=== PATIENT | female | born 1995 | race Caucasian/White ===

== ENCOUNTER 2020-05-18 18:44 | Emergency (ER) | payer OTHER ==
[~2020-05-18] VITALS: Ht 152.4 cm; Wt 81.6 kg
[2020-05-18 19:02] VITALS: BP 164/92
[2020-05-18 19:34] LABS: BASOPHIL % 0.3 % (0.0-0.2); EOSINOPHIL # 0.1 10^3/uL (0.0-0.2); EOSINOPHIL % 0.7 % (0.0-5.0); LYMPHOCYTES # 1.62 10^3/uL1 (1.0-4.8); LYMPHOCYTES % 18.8 % (24.0-44.0); MEAN CORP HGB 27.1 pg (26-34); MONOCYTES # 0.4 10^3/uL (0.3-0.8); MONOCYTES % 5.1 % (5.0-12.0); NEUTROPHIL # 6.4 10^3/uL (1.8-7.7); NEUTROPHILS % 74.4 % (41.0-85.0); RED CELL DISTRIBUTION WIDTH 15.2 % (11.5-14.5)
[2020-05-18 19:39] LABS: BILIRUBIN,URINE NEGATIVE (NEGATIVE); UA COLOR RED
--- NOTE | 2020-05-18 20:50 | NUR ---
US DARRELL CALLED FOR US AT THIS TIME.
--- NOTE | 2020-05-18 21:48 | NUR ---
US PT STILL IN US AT THIS TIME.
--- NOTE | 2020-05-18 22:28 | DIREP ---
PROCEDURE:US OB 1ST TRI - TV COMPARISON:None. INDICATIONS:first trimester bleeding and cramps. TECHNIQUE:Transabdominal and endovaginal pelvic ultrasound images were obtained. Endovaginal images were obtained to optimally evaluate the and maternal adnexal structures. FINDINGS: GESTATIONAL SAC:No gestational sacs identified in the uterus. UTERUS:Endometrium is thickened but no intrauterine gestation is identified. The small and fluid in the endocervical canal. OVARIES:Right ovary measures 4.3 x 2.2 x 2.4 on the left ovary measures 4.9 x 2.3 x 2.3. In the right adnexa there is a mildly echogenic structure with mild peripheral acoustical shadowing measuring 4 x 2.4 x 2.9 cm. It is not clear if this represents a loop of bowel, adnexal mass, or portion of the right ovary. No adnexal gestational sac is identified. CUL-DE-SAC:Small amount of free fluid in the cul de sac. US SHUN:Not available OTHER:Survey of the placental anatomic structure and amniotic fluid could not be performed because of gestational age (<14 weeks). CONCLUSION: 1. No intrauterine gestation is identified at this time however the endometrium is thickened and there is small amount of fluid in the endocervical canal. Findings could signify gestation of unknown location or spontaneous . Recommend follow-up beta HCG levels. 2. Indeterminate right adnexal soft tissue structure could represent a loop of bowel, adnexal mass, or portion of the right ovary. Dictated by: Bear Mei MD on 05/18/2020 at 10:12 PM
--- NOTE | 2020-05-19 00:13 | ER.PDOC ---
General Chief Complaint: Vaginal Bleed Stated Complaint: POSSIBLE MISCARRIAGE Time seen by MD: 19:20 Source: patient, family Exam Limitations: no limitations History of Present Illness Initial Comments This 24-year-old female comes to the emergency department accompanied by her best friend. She is visiting from [place]. She is known to be estim ated at 6 weeks and was having vaginal bleeding at home prior to coming here and was seen in the emergency department there having a negative ultrasound for intrauterine implantation and was deemed to be very early first trimester. Her quantitative hCG at the time was 1700 as she recalls. She stopped bleeding for a few days but began bleeding again yesterday lightly and today passed more clots and had more cramping but did not feel faint. She has had no fever or chills and no dysuria. She has 3 children, ages 4, 2, and 1. She has never had a miscarriage or therapeutic previously. She is normally healthy with no history of gestational diabetes or preeclampsia. She denies any severe abdominal pain or any flank pain or dysuria. She has had no recent infections and denies any coronavirus contacts or suggestion of infection personally. Allergies: Coded Allergies: atomoxetine (Verified Allergy, Unknown, 05/18/20) Past Medical History Medical History: asthma Surgical History: cholecystectomy, Family History Significant Family History: no pertinent family hx Social History Smoking: non-smoker Alcohol Use: none Drug Use: none Review of Systems Constitutional: denies chills, denies diaphoresis, denies fever, denies weakness EENTM: no symptoms reported Respiratory: denies cough, denies shortness of breath, denies wheezing; other (History of asthma) Cardiovascular: no symptoms reported Gastrointestinal: no symptoms reported Genitourinary: see HPI Musculoskeletal: no symptoms reported Skin: no symptoms reported Psychiatric/Neurological: no symptoms reported Endocrine: no symptoms reported Hematologic/Lymphatic: no symptoms reported Physical Exam General Appearance: No Apparent Distress, WD/WN EENT: eyes nml inspection, nml ENT inspection, pharynx nml Neck: nml inspection, non-tender Cardiovascular/Respiratory: Regular Rate, Rhythm, No M/R/G, Normal Peripheral Pulses, No JVD, Normal Breath Sounds, No Respiratory Distress Abdomen: Normal Bowel Sounds, Non Tender, Soft, No Organomegaly, No Pulsatile Mass Rectal: Normal Exam Back: nml inspection Pelvic: External Exam Normal, No Cerv. Motion Tender, No Masses, Active Bleeding, Other Extremities: Normal Range of Motion, Non-Tender, Normal Inspection, No Pedal Edema, No Calf Tenderness, Normal Capillary Refill Neurologic/Psychiatric: patternmaker helper II-XII NML as Tested, No Motor/Sensory Deficits, Alert, Normal Mood/Affect, Oriented x 3 Skin: Normal Color, Warm/Dry Comments Pelvic exam was performed showing a closed cervical os with scant amount of blood in the vaginal cavity with no clot and no evidence of vaginal wall trauma. Patient has no palpable adnexal fullness or mass or tenderness on either side. She has no evidence of cervicitis and no vaginal lesions or lesions around the introitus. She has no regional adenopathy. There are no products of conception in the vaginal cavity and she has a negative [place] sign. Results/Orders Results/Orders Orders - KALANI BELTRÁN MD Cbc With Auto Diff (05/18/20 19:19) Urinalysis (05/18/20 19:19) Hcg, Quantitative (05/18/20 19:19) Urine Culture (05/18/20 18:51) Us Preg Before 14 Wks (05/18/20 20:08) Us Tv-Ob (05/18/20 20:11) Vital Signs Date Time Temp Pulse Resp B/P (MAP) Pulse Ox O2 Delivery O2 Flow Rate FiO2 05/18/20 19:02 98.9 129 18 164/92 (116) 97 Room Air 05/18/20 19:02 98.9 129 18 97 05/18/20 19:02 98.9 129 18 Laboratory Tests Test 05/18/20 18:51 05/18/20 19:26 Urine Collection Type CCMS Urine Color RED Urine Appearance CLOUDY Urine Bilirubin NEGATIVE (NEGATIVE) Urine Ketones NEGATIVE (NEGATIVE) Urine Specific [place] 1.025 (1.005-1.030) Urine pH 7.0 (4.5-8.0) Urine Protein TRACE (NEGATIVE) H Urine Urobilinogen 1.0 E.U./dL (0.2) Urine Nitrate NEGATIVE (NEGATIVE) Urine Leukocyte Esterase NEGATIVE (NEGATIVE) Urine Glucose (Auto)(UA) NEGATIVE (NEGATIVE) Urine Blood MODERATE (NEGATIVE) H Urine RBC TNTC RBC/HPF (NONE SEEN) H Urine WBC 0-2 WBC/HPF (0-2) Urine Squamous Epithelial Cells FEW #/HPF (FEW) Urine Bacteria FEW (NONE SEEN) H White Blood Count 8.6 10^3/uL (4.5-11.0) Red Blood Count 4.13 10^6/uL (4.00-5.20) Hemoglobin 11.2 g/dL (12.0-15.0) L Hematocrit 33.6 % (36.0-46.0) L Mean Corpuscular Volume 81.4 fL (78-100) Mean Corpuscular Hemoglobin 27.1 pg (26-34) Mean Corpuscular Hemoglobin Concent 33.3 g/dL (33-36.5) Red Cell Distribution Width 15.2 % (11.5-14.5) H Platelet Count 242 10^3/uL (150-400) Mean Platelet Volume 11.4 fL (7.8-11.0) H Neutrophils (%) (Auto) 74.4 % (41.0-85.0) Lymphocytes (%) (Auto) 18.8 % (24.0-44.0) L Monocytes (%) (Auto) 5.1 % (5.0-12.0) Neutrophils # (Auto) 6.4 10^3/uL (1.8-7.7) Lymphocytes # (Auto) 1.62 10^3/uL1 (1.0-4.8) Monocytes # (Auto) 0.4 10^3/uL (0.3-0.8) Absolute Immature Granulocyte (auto 0.06 10^3 u/L (0-2) Absolute Eosinophils (auto) 0.1 10^3/uL (0.0-0.2) Immature Granulocytes % 0.70 % (0.00-0.50) H Eosinophils % 0.7 % (0.0-5.0) Basophils % 0.3 % (0.0-0.2) H Basophils # 0.0 10^3/uL (0.0-0.1) Human Chorionic Gonadotropin, Quant 2329 mIU/mL Progress Progress Patient has been serially reexamined with no evidence of hemodynamic compromise. Ultrasound shows no tissue in the uterus but does show fullness in the right adnexal region without clear-cut sac or other products of conception. No definite signs of ectopic . It has been 1 full week since she had a quantitative hCG in [place] of 1700 and her quantitative hCG tonight is 2300. This is not suggestive of ectopic and there is no significant quantity of fluid in the cul-de-sac or peritoneum. Ovaries are unremarkable without cysts. The patient is planning on returning to [place] on Thursday and is discharged here to be watched closely by her friend and to return immediately if she has any feeling of faintness, worsening abdominal pain, or any recurrent vaginal bleeding with clot. She is to rest until returning home. ER DEPART Departure Time of Disposition: 00:19 Disposition: 01 HOME, SELF-CARE Impression: Primary Impression: Spontaneous in first trimester Condition: Improved Referrals: PCP,UNKNOWN (PCP) PRIMARY CARE PROVIDER Duration or Time Spent with Pa: 25 minutes Return to Work/School Can a patient return to work?: KALANI Carney MD May 19, 2020 00:13
[2020-05-19 01:07] VITALS: BP 155/93
== END 2020-05-19 00:59 | disposition home or self-care (01) ==
LOC: ER 18:56
DX: O03.9 Complete or unspecified spontaneous abortion without complication (principal); J45.909 Unspecified asthma, uncomplicated; Z3A.01 Less than 8 weeks gestation of pregnancy; Z90.49 Acquired absence of other specified parts of digestive tract
CPT/HCPCS: 36415; 76801; 76817; 81000; 81003; 84702; 85025; 87086; 99284